=== PATIENT | female | born 1955 | race Caucasian/White ===

== ENCOUNTER 2017-04-18 11:10 | Emergency (ER) | payer OTHER ==
[2017-04-18 11:12] VITALS: BP 199/94; PULSE 102; RESP 18; TEMP 98.2; O2SAT 98
--- NOTE | 2017-04-18 11:34 | PD ---
HPI Chief Complaint: Laceration/Skin Injury Time Seen by Provider: 11:20 Travel History International Travel<30 days: No Contact w/Intl Traveler<30days: No Traveled to known affect area: No History of Present Illness HPI Patient comes emergency department complaining of a laceration to her left hand that occurred shortly prior to arrival. Patient was at work washing dishes when someone bumped into her causing her to fall cutting her hand on a glass and hitting her head. Patient denies any loss of consciousness, chest pain, shortness of breath, numbness or tingling anywhere. Patient is left-hand- dominant. Patient uncertain of her last tetanus shot. Patient describes a throbbing sensation around site of the laceration without radiation. Patient tried to go to an urgent care prior to coming to the emergency department, but was not sent here. Denies do anything else for this. Denies being on any blood thinners. Denies anything making symptoms better. Touching the laceration makes pain worse. PFSH Past Medical History Medical History: Denies Significant Hx Social History Alcohol Use: No Tobacco Use: No Substance Use: No Allergies-Medications (Allergen,Severity, Reaction): Coded Allergies: No Known Allergies (Unverified , 04/18/17) Reported Meds & Prescriptions Reported Meds & Active Scripts Active Keflex (Cephalexin) 500 Mg Cap 500 Mg PO Q12H 10 Days Review of Systems Except as stated in HPI: all other systems reviewed are Neg Physical Exam Narrative GENERAL: Well-developed, well nourished, in no acute distress, and non-ill appearing. SKIN: Lacerations noted on the palmar surface of the left hand an left pinky finger. Foreign bodies noted. Neurovascularly intact distally. Full range of motion with flexion, extension, abduction, adduction, opposition with fingers and equal bilaterally. HEAD: Atraumatic. Normocephalic. EYES: Pupils equal and round. EOMI. No scleral icterus. No injection or drainage. ENT: No nasal bleeding or discharge. Mucous membranes pink and moist. NECK: Trachea midline. Supple. No nuclear rigidity. CARDIOVASCULAR: Radial pulses 2+, intact, and equal bilaterally. Capillary refill less than 2 seconds. RESPIRATORY: No accessory muscle use. No respiratory distress. MUSCULOSKELETAL: No obvious deformities. No clubbing. No cyanosis. No edema. Full range of motion. NEUROLOGICAL: Awake and alert. No obvious cranial nerve deficits. Motor grossly within normal limits. Normal speech. PSYCHIATRIC: Appropriate mood and affect; insight and judgment normal. Data Data Last Documented VS Vital Signs Date Time Temp Pulse Resp B/P (MAP) Pulse Ox O2 Delivery O2 Flow Rate FiO2 04/18/17 11:12 98.2 102 18 199/94 (129) 98 Orders Orders Tetanus/Diphtheria Tox Adult (Tetanus/Di (04/18/17 11:45) Bupivacaine Pf 0.5% Inj (Marcaine Pf 0.5 (04/18/17 11:45) Lidocaine 1% Inj (50 Ml) (Xylocaine 1% I (04/18/17 11:45) Hand, Complete ([id number]) (04/18/17 ) Ct Brain W/O Iv Contrast(Rout) (04/18/17 ) Lidocaine 1% Inj (Xylocaine 1% Inj) (04/18/17 12:00) Ed Discharge Order (04/18/17 13:22) MDM Medical Decision Making Medical Screen Exam Complete: Yes Emergency Medical Condition: Yes Interpretation(s) Last Impressions Head CT 04/18/17 0000 Signed Impressions: Service Date/Time: Tuesday, April 18, 2017 11:40 - CONCLUSION: Negative for acute traumatic injury. Left maxillary sinus disease. Jhon Abdalla MD FACR Hand X-Ray 04/18/17 0000 Signed Impressions: Service Date/Time: Tuesday, April 18, 2017 11:45 - CONCLUSION: 1. No fracture. 2. Foreign body as detailed above. 3. Osteopenia and osteoarthritis. Marek Jarvis Jr., MD Differential Diagnosis Open fracture, laceration, abrasion, foreign body Narrative Course The patient suffered lacerations to the hand. There was evidence to suggest foreign bodies. Visual, tactile and radiographic exams were remarkable without evidence of foreign body at this time that foreign bodies were removed. There was no evidence of neurovascular injury. The patient had a normal distal vascular exam, and had full normal motor and sensory exams. There was also no evidence or tendon injury, with normal distal full range of motions, flexion, extension, abduction, adduction and opponens. There was no evidence of local joint space involvement at this time. The patient was irrigated with copious sterile normal saline and primary repair was performed. Please see procedure note. The patient was given signs and symptom warnings for infection, such as increasing pain, redness, swelling, associated heat, pus or fever. The patient was warned of possible unseen foreign body and instructed to return immediately if signs or symptoms develop. The patient was given instructions for timely follow up. The patient agreed with plan of care. Patient presents with closed head injury. There was no evidence of cranial or intracranial injury noted on CT of the head. The patient has been behaving normally and no notable altered mental status. Forrest score of 15. The neurologic exam is normal. The patient is awake and aware and motor sensory exams are normal. There is no clinical evidence to support intracranial injury or bleed. Patient in no obvious distress upon re-evaluation. All pertinent Radiology result(s) discussed with patient. Patient was asked if they wanted to speak to my attending, which the patient did not wish to do at this time. Any questions/ concerns in reference to patient diagnosis/condition discussed and clarified prior to patient's discharge. Reinforced sheer importance of close follow up with patient's Workmen's Comp. provider and/or hand surgeon. Instructed patient to return to ED immediately, if symptoms return/worsen. Patient showed understanding of above instructions. Further instructions and recommendations were detailed in discharge paperwork. Patient ambulated without difficulty out of ED at discharge. Procedures Procedure Narrative LACERATION REPAIR LOCATION: Palmar surface of left hand going over the third fourth in fifth metacarpal into the dorsal aspect of the fifth metacarpal. LENGTH: Approximately 7 cm irregular shaped NUMBER OF STITCHES/CAROL ANN: 16 combination simple interrupted simple mattress REPAIR: Verbal consent was obtained. The area of the laceration was cleaned and prepped. The laceration was infiltrated with mixture of lidocaine without epi Marcaine without epi. The wound was copiously irrigated and explored without evidence of bony involvement, ligament injury, tendon injury, or neurovascular injury. 2 small foreign bodies were removed. The wound was closed using 4-0 Vicryl. This was a single layer repair. A sterile dressing was applied. The patient was advised to keep the affected area as clean and dry as possible using soap and water. There were no complications. Patient tolerated the procedure well. LACERATION REPAIR LOCATION: Medial aspect left pinky distal phalanx LENGTH: Proximally half a centimeter NUMBER OF STITCHES/CAROL ANN: One simple interrupted REPAIR: Verbal consent was obtained. The area of the laceration was cleaned and prepped. Digital block performed using a combination of lidocaine without epi Marcaine without epi. The wound was copiously irrigated and explored without evidence of foreign body, bony involvement, ligament injury, tendon injury, or neurovascular injury. The wound was closed using 4-0 Vicryl. This was a single layer repair. A sterile dressing was applied. The patient was advised to keep the affected area as clean and dry as possible using soap and water. There were no complications. Patient tolerated the procedure well. LACERATION REPAIR LOCATION: Palmar surface left hand proximal LENGTH: Approximately 1 cm in total length slightly T-shaped NUMBER OF STITCHES/CAROL ANN: 2 simple interrupted REPAIR: Verbal consent was obtained. The area of the laceration was cleaned and prepped. The laceration was infiltrated with mixture of Marcaine without epi lidocaine without epi. The wound was copiously irrigated and explored without evidence of foreign body, bony involvement, ligament injury, tendon injury, or neurovascular injury. The wound was closed using 4-0 Vicryl. This was a single layer repair. A sterile dressing was applied. The patient was advised to keep the affected area as clean and dry as possible using soap and water. There were no complications. Patient tolerated the procedure well. Diagnosis Primary Impression: Laceration of left hand with foreign body Qualified Codes: S61.422A - Laceration with foreign body of left hand, initial encounter Additional Impressions: Finger laceration Qualified Codes: S61.217A - Laceration without foreign body of left little finger without damage to nail, initial encounter Closed head injury Qualified Codes: S09.90XA - Unspecified injury of head, initial encounter Referrals: Siria Herrera MD Patient Instructions: Care For Your Absorbable Stitches (ED), Finger Laceration (ED), General Instructions, Head Injury (ED), Laceration (ED), Soft Tissue Foreign Body (ED) Additional Instructions: Follow-up with your Workmen's Comp. provider and/or hand surgeon this week for reevaluation. Take all medication as prescribed. Keep wound dry and clean as possible using soap and water. Use Neosporin to promote healing. Do not soak or submerge wound. Return to the emergency department if symptoms get worse. Med/Other Pt SpecificInfo: Prescription(s) given Scripts Cephalexin (Keflex) 500 Mg Cap 500 MG PO Q12H for Infection for 10 Days, #20 CAP 0 Refills Prov: Silas Leonardo MD 04/18/17 Disposition: 01 DISCHARGE HOME Condition: Stable Samir Estes Apr 18, 2017 11:34
[2017-04-18] MEDS ORDERED: LIDOCAINE HCL 1% 50 ML VIAL INFIL ONE (11:45)
[2017-04-18] MEDS ORDERED: BUPIVACAINE HCL PF 0.5% 10 ML VIAL INFIL ONE (11:45)
[2017-04-18] MEDS ORDERED: TETANUS/DIPHTHERIA TOXOID ADULT 0.5 ML VIAL IM ONE (11:45)
[2017-04-18] MEDS ORDERED: LIDOCAINE HCL 1% 30 ML VIAL INFIL ONE (12:00)
--- NOTE | 2017-04-18 12:06 | RADRPT ---
EXAM DATE/TIME: 04/18/2017 11:45 [facility] COMPARISON: No previous studies available for comparison. INDICATIONS : Laceration, tripped with dishes in her hands. MEDICAL HISTORY : None. SURGICAL HISTORY : None. ENCOUNTER: Initial ACUITY: 1 day PAIN SCORE: 10/10 LOCATION: Left hand FINDINGS: 3 views of the left hand reveal diffuse osteopenia. Ost or arthritic changes seen involving the DIP j oints of the first through fifth fingers. No fractures or dislocations. A tiny linear radiopaque dens ity is seen associated with the head of the metatarsal. The lateral projection suggests this is eithe r within the superficial soft tissues within the palmar aspect or maybe even on the skin surface. CONCLUSION: 1. No fracture. 2. Foreign body as detailed above. 3. Osteopenia and osteoarthritis. Marek Jarvis Jr., MD on April 18, 2017 at 12:01 Board Certified Radiologist. This report was verified electronically.
--- NOTE | 2017-04-18 12:06 | RADRPT ---
EXAM DATE/TIME: 04/18/2017 11:40 [facility] COMPARISON: No previous studies available for comparison. INDICATIONS : Fall abrasion left outer eye. RADIATION DOSE: 56.35 CTDIvol (mGy) MEDICAL HISTORY : None SURGICAL HISTORY : None. ENCOUNTER: Initial ACUITY: 1 day PAIN SCALE: 4/10 LOCATION: cranial TECHNIQUE: Multiple contiguous axial images were obtained of the head. Using automated exposure control and adj ustment of the mA and/or kV according to patient size, radiation dose was kept as low as reasonably a chievable to obtain optimal diagnostic quality images. DICOM format image data is available electro nically for review and comparison. FINDINGS: CEREBRUM: The ventricles are normal for age. No evidence of midline shift, mass lesion, hemorrhage or acute in farction. No extra-axial fluid collections are seen. Moderate periventricular white matter changes. POSTERIOR FOSSA: The cerebellum and brainstem are intact. The 4th ventricle is midline. The cerebellopontine angle i s unremarkable. EXTRACRANIAL: The visualized portion of the orbits is intact. SKULL: Moderate sinus disease left maxillary sinus. Negative for skull fracture. CONCLUSION: Negative for acute traumatic injury. Left maxillary sinus disease. Jhon Abdalla MD FACR on April 18, 2017 at 12:02 Board Certified Radiologist. This report was verified electronically.
[2017-04-18] MEDS ORDERED: CEPH-460 PO (13:22)
== END 2017-04-18 13:43 | disposition home or self-care (01) ==
LOC: NEPK 11:10
DX: S61.422A Laceration with foreign body of left hand, initial encounter (principal); S61.217A Laceration without foreign body of left little finger without damage to nail, initial encounter; S09.90XA Unspecified injury of head, initial encounter; W03.XXXA Other fall on same level due to collision with another person, initial encounter; Y93.G1 Activity, food preparation and clean up; Y99.0 Civilian activity done for income or pay; Z23 Encounter for immunization
CPT/HCPCS: 12004; 70450; 73130; 90471; 90714